=== PATIENT | male | born 1955 | race Caucasian/White ===

== ENCOUNTER → 2018-01-24 | Outpatient (CLI) | payer OTHER ==
[~2018-01-24] MED LIST: ACCUPRIL; ACCUPRIL PO; ACETAMINOPHEN325 M1; CLONAZEPAM; FISHOIL; FLONASE 0.05%50 MCG; IBUPROFEN 800800 M1 PO; MELOXICAM7.5 MG; MULTIVITAMINS; NORCO 5-325 TA1 EACH PO; NORVASC 5 MG TAB5 MG; OMEPRAZOLE20 MG PO; RELAFEN750 MG PO; SIMVASTATIN20 MG
--- NOTE | 2018-01-27 09:44 | PF ---
[address] [address] PULMONARY FUNCTION REPORT Name: VIKRAM KAUR Room: [facility]#: [id number] Admission: 01/24/18 Attend Phys: Aliya Nunez MD Discharge: Date of : 57 Report #: [id number] THIS REPORT FOR: //name// CC: Aliya Nunez PULMONARY FUNCTION TEST SPIROMETRY: The FEV1/FVC ratio was 60% of predicted. The FEV1 was 1.85 liters post-bronchodilator at 50% predicted. The forced vital capacity 2.67 liter at 55% predicted. This test meets the criteria for positive bronchodilator response. LUNG VOLUMES: Total lung capacity was 5.84 liters at 80% predicted. The DLCO was 75% predicted. IMPRESSION: This test demonstrates evidence of obstructive pulmonary defect of moderate degree. <ELECTRONICALLY SIGNED> By: Po Anand MD 01/27/18 0944 [id number] Anand MD /nt
== END ==
LOC: M.PUL 09:51
DX: J44.9 Chronic obstructive pulmonary disease, unspecified (principal)

== ENCOUNTER → 2018-01-31 | Outpatient (CLI) | payer OTHER ==
--- NOTE | 2018-01-31 16:45 | 2DMMODE ---
[place] [address] 2 D/M-MODE ECHOCARDIOGRAM Name: VIKRAM KAUR TARIQ Room: [facility]#: [id number] Admission: 01/31/18 Attend Phys: Chin Atkins, Discharge: Date of : 57 Date of Service: 01/31/18 1645 Report #: [id number] THIS REPORT FOR: //name// APPROVED REPORT Study performed: 01/31/2018 15:20:02 EXAM: Comprehensive 2D, Doppler, and color-flow Echocardiogram BSA: 2.29 HR: 62 bpm Indications Chest Pain 2D Dimensions LVEF(%): 69.03 (>50%) IVSd: 11.91 (7-11mm) LVOT Diam: 20.50 (18-24mm) LVDd: 46.52 mm PWd: 9.52 (7-11mm) Ascending Ao: 36.69 (22-36mm) LVDs: 28.53 (25-40mm) Aortic Root: 25.51 mm Gilmore's LVEF: 69.03 % Volumes Left Atrial Volume (Systole) LA ESV Index: 12.10 mL/m2 Aortic Valve AoV Peak Pollo.: 1.42 m/s AO Peak Gr.: 8.04 mmHg LVOT Max P.97 mmHg AO Mean Gr.: 4.61 mmHg LVOT Mean P.49 mmHg LVOT Max V: 1.11 m/s AO V2 VTI: 29.86 cm LVOT Mean V: 0.73 m/s HILLARY (VTI): 2.42 cm2 LVOT V1 VTI: 21.91 cm Mitral Valve E/A Ratio: 0.72 MV Decel. Time: 209.27 ms MV E Max Pollo.: 0.48 m/s MV PHT: 60.69 ms MVA (PHT): 3.63 [place] [address] 2 D/M-MODE ECHOCARDIOGRAM Name: VIKRAM KAUR Room: [facility]#: [id number] Admission: 01/31/18 Attend Phys: Chin Atknis, Discharge: Date of : 57 Date of Service: 01/31/18 1645 Report #: [id number] E/Lateral E': 4.00 E/Medial E': 6.00 Medial E' Pollo.: 0.08 m/s Lateral E' Pollo.: 0.12 m/s Pulmonary Valve PV Peak Pollo.: 0.93 m/s PV Peak Gr.: 3.43 mmHg Left Ventricle The left ventricle is normal size. There is normal LV segmental wall motion. There is normal left ventricular wall thickness. Left ventricular systolic function is normal. LVEF is 60-65%. Transmitral Doppler flow pattern suggests impaired LV relaxation. Right Ventricle The right ventricle is normal size. The right ventricular systolic function is normal. Atria The left atrium size is normal. The right atrium size is normal. Aortic Valve The aortic valve is normal in structure. No aortic regurgitation is present. There is no aortic valvular stenosis. Mitral Valve The mitral valve is normal in structure. There is no mitral valve regurgitation noted. No evidence of mitral valve stenosis. Tricuspid Valve The tricuspid valve is normal in structure. There is no tricuspid valve regurgitation noted. Pulmonic Valve The pulmonary valve is normal in structure. There is no pulmonic valvular regurgitation. Great Vessels The aortic root is normal in size. IVC is normal in size and collapses with >50% inspiration Pericardium There is no pericardial effusion. <Conclusion> The left ventricle [place] [address] 2 D/M-MODE ECHOCARDIOGRAM Name: VINCENTVIKRAM TARIQ Room: [facility]#: [id number] Admission: 01/31/18 Attend Phys: Chin Atkins, Discharge: Date of : 57 Date of Service: 01/31/18 1645 Report #: [id number] There is normal left ventricular wall thickness. Left ventricular systolic function is normal. LVEF is 60-65%. Transmitral Doppler flow pattern suggests impaired LV relaxation. IVC is normal in size and collapses with >50% inspiration <ELECTRONICALLY SIGNED> By: Rodger Sotomayor MD, FACC 01/31/181644 44 44 Rodger Sotomayor MD, FACC /INF
== END ==
LOC: M.CRD 15:00
DX: R07.9 Chest pain, unspecified (principal); R06.09 Other forms of dyspnea